=== PATIENT | female | born 1960 | race Caucasian/White ===

== ENCOUNTER → 2021-02-18 10:28 | Outpatient (BNVA) | payer OTHER, SELFPAY | PROVIDERS: Family Provider Family Medicine; PCP Family Medicine; Visit Provider Family Medicine | DX: E78.2 Mixed hyperlipidemia (principal); R30.0 Dysuria; G43.909 Migraine, unspecified, not intractable, without status migrainosus; N39.0 Urinary tract infection, site not specified; Z68.22 Body mass index [BMI] 22.0-22.9, adult | CPT/HCPCS: 80053; 80061; 81003; 84443; 85025; 87077; 87086; 87184 ==

== ENCOUNTER 2021-04-06 14:08 | Outpatient (CLI) | payer OTHER, SELFPAY ==
--- NOTE | 2021-04-06 14:30 | MM_ITS ---
WS: [id number] BILATERAL DIGITAL SCREENING MAMMOGRAPHY WITH CAD CLINICAL INFORMATION: Z12.31 - Encounter for screening mammogram for malignant neoplasm of breast HISTORY: Screening mammogram. No current complaints. COMPARISON: August 26, 2018 TECHNIQUE: Bilateral CC and MLO views. FINDINGS: The breasts are composed of heterogeneous fibroglandular density tissue, which can limit the detectio n of small underlying mass lesions. Small punctate calcifications. No suspicious mass, asymmetry, xiomara cifications, or architectural distortion. No evidence of malignancy. MM/[place] [id number] IMPRESSION: BI-RADS: 2-Benign FOLLOW UP: 1 Year Follow-up Recommend return to annual screening mammography.
== END 2021-04-06 14:09 | disposition home or self-care (01) ==
LOC: RADSHAW 14:11
PROVIDERS: Family Provider Family Medicine; PCP Family Medicine; Visit Provider Family Medicine
DX: Z12.31 Encounter for screening mammogram for malignant neoplasm of breast (principal)
CPT/HCPCS: 77067

== ENCOUNTER 2021-04-09 14:13 | Day surgery (SDC) | payer OTHER, SELFPAY ==
[2021-04-09] VITALS (11 sets, daily range): BP systolic 99–121; BP diastolic 63–80; PULSE 70–90; RESP 15–20; TEMP 36.3–36.6; O2SAT 97–100; BMI 22.3
--- NOTE | 2021-04-09 15:12 | CTR_ITS ---
PROCEDURE INFORMATION: Exam: CT Abdomen And Pelvis With Contrast Exam date and time: 04/09/2021 4:09 PM Age: 61 years old Clinical indication: Abdominal pain; Localized; Right lower quadrant (rlq); Prior surgery; Surgery date: 6+ months; Surgery type: Hyst; Patient HX: HX of miles syndrome C/O R flank/rlq abd pain; Additional info: Rlq tenderness. H/o utis as well TECHNIQUE: Imaging protocol: Computed tomography of the abdomen and pelvis with contrast. Radiation optimization: All CT scans at this facility use at least one of these dose optimization techniques: automated exposure control; mA and/or kV adjustment per patient size (includes targeted exams where dose is matched to clinical indication); or iterative reconstruction. Contrast material: OMNI 300; Contrast volume: 95 ml; Contrast route: INTRAVENOUS (IV); COMPARISON: No relevant prior studies available. RADIATION DOSE METRICS: Total DLP (mGy-cm): 955.89 FINDINGS: Liver: Normal. No mass. Gallbladder and bile ducts: Normal. No calcified stones. No ductal dilation. Pancreas: Normal. No ductal dilation. Spleen: Normal. No splenomegaly. Adrenal glands: Normal. No mass. Kidneys and ureters: Normal parenchyma. No hydronephrosis. Bilateral lower pole nonobstructing stones. Stomach and bowel: Unremarkable. No obstruction. No mucosal thickening. Large fecal volume. Appendix: No evidence of appendicitis. Intraperitoneal space: Unremarkable. No free air. No significant fluid collection. Vasculature: Unremarkable. No abdominal aortic aneurysm. Lymph nodes: Unremarkable. No enlarged lymph nodes. Urinary bladder: Unremarkable as visualized. Reproductive: Hysterectomy. Bones/joints: Unremarkable. No acute fracture. Soft tissues: Unremarkable. CT/CT abdomen pelvis w con* [id number] IMPRESSION: Negative for acute pathology in the abdomen or pelvis. Radiation Dose CTDIVOL = (mGy): DLP = 955.89 (mGy-cm)
--- NOTE | 2021-04-09 15:17 | W.ED.FEMALGU ---
HPI - Female Genitourinary General: Chief complaint: Abdominal Pain Stated complaint: abdomen pain Time Seen by Provider: 04/09/21 14:56 History of Present Illness: HPI Narrative: The patient is a 61-year-old female who comes to the ER complaining of right lower quadrant abdominal pain with radiation to the lower abdomen. She denies urinary symptoms. Earlier this year she did have a UTI treated and improved. Years ago she did have a hysterectomy for some type of cancer and she also has Gallegos syndrome. She gets regular colonoscopies and says she has had no polyps or any issues with that. Severity: moderate Female Urogenital Radiation: Suprapubic Quality of pain: cramping and sharp Consistency: constant Vaginal discharge: none Exacerbating factors: movement Associated symptoms: Reports no associated symptoms and abdominal pain; Deny headache(s) or nausea Review of Systems General: Reports: 10 or more systems reviewed and unremarkable except in HPI and below Const: Denies: fatigue Eyes: Denies: change in vision, blurry vision or eye redness ENMT: Denies: throat pain, swelling of lips/tongue, ear or mastoid pain or nasal congestion Card: Denies: chest pain, palpitations, irregular heart rhythm, edema, dyspnea on exertion or orthopnea Resp: Denies: dyspnea, productive cough or non-productive cough GI: Reports: abdominal pain; Denies: nausea, vomiting, diarrhea or constipation : Denies: flank pain, difficulty voiding, urinary frequency or urinary urgency Musc: Denies: neck pain, back pain, extremity pain, joint pain, joint redness, limited range of motion or muscle weakness Skin/Breast: Denies: rash, pruritus, erythema, skin pain or skin tenderness Neuro: Denies: headache(s), numbness in extremities, weakness in extremities, sensory changes, difficulty walking, dizziness, confusion or Slurred speech present Psych: Denies: anxiety or depression Endo: Denies: polyuria All/Imm: Denies: urticaria, throat swelling or tongue swelling PFSH ED PFSH: Medical History Hyperlipidemia Gallegos syndrome Melanoma (~2014) Uterine mass Benign Surgical History Hx of hysterectomy complete Status post colonoscopy Family History Sister Cancer uterine Diabetes Family/Other CAD (coronary artery disease) Denies family history of Clotting disorder Bleeding disorder Lung disease Stroke Social History Smoking and tobacco status: never smoked Second hand smoke exposure: No Alcohol intake: never Lives independently: Yes Household members: spouse Marital status: Current occupational status: retired History of recent travel: No Current gender identity: Female Special artie needs: No Agree to transfusion: Yes Physical Exam Const: COMMON NORMALS: no acute distress, average body habitus, patient oriented x3, no limitations, healthy appearing, alert and well nourished GENERAL APPEARANCE: cooperative, comfortable, well kempt and well developed ORIENTATION/CONSCIOUSNESS: Yes awake, Yes oriented to person, Yes oriented to place and Yes oriented to time HENMT: COMMON NORMALS: normocephalic, external ears normal and Normal external nose present HEAD & SCALP: normal to inspection and normocephalic NOSE: Normal external nose present EXTERNAL EAR: Yes external ears normal MOUTH: Normal oral and palatal mucosa present THROAT: posterior oropharynx normal Eye: COMMON NORMALS: Equal, round and reactive pupils present and EOMs intact bilaterally GENERAL EYE: appearance normal, both eyes and all related structures PUPIL: Yes Equal, round and reactive pupils present Neck/C-Spine: COMMON NORMALS: full ROM, no lymphadenopathy, no meningeal signs and no JVD GENERAL: Yes normal visual inspection Lymph: LYMPHATIC: no lymphadenopathy noted Chest: COMMONS NORMALS: normal inspection of the chest and normal palpation of entire chest wall Resp: COMMON NORMALS: normal respiratory effort, No retractions, No use of accessory muscles, clear to auscultation bilaterally and percussion normal EFFORT & INSPECTION: Yes able to speak in complete sentences AUSCULTATION: clear to auscultation bilaterally PERCUSSION: percussion normal Cardio: COMMON NORMALS: no JVD, regular rate, regular rhythm, S1 normal heart sound present, S2 normal heart sound present and Peripheral pulses 2+ throughout RATE: regular rate RHYTHM: regular rhythm HEART SOUNDS: S1 normal heart sound present and S2 normal heart sound present PERIPHERAL PULSES: Peripheral pulses 2+ throughout GI: COMMON NORMALS: Normal to inspection, nondistended, normoactive bowel sounds present, Soft to palpation and no masses INSPECTION: Yes normal to inspection PALPATION: Yes Soft to palpation OTHER: No flank tenderness. GI image (female): 1. Right lower quadrant abdominal tenderness. No rebound tenderness. : COMMON NORMALS: Yes no CVA tenderness BLADDER/KIDNEY EXAM: Yes no CVA tenderness Back/Pelvis: COMMON NORMALS: no CVA tenderness, thoracic and lumbar spine normal to inspection, no thoracic nor lumbar tenderness and thoraco-lumbar ROM normal Extremity: COMMON NORMALS: normal to inspection, full ROM, capillary refill normal, no joint enlargement and no pedal edema GENERAL: Yes normal exam except as noted Neuro: COMMON NORMALS: patient oriented x3, CN's II-XII intact bilaterally, moves all extremities, no focal motor deficits, no sensory deficits noted and gait normal SENSORIUM/ORIENTATION: Yes alert, Yes oriented to person, Yes oriented to place and Yes oriented to time MENINGEAL SIGNS: Yes no meningeal signs Psych: COMMON NORMALS: mental status grossly normal, Normal thought process present, cooperative, normal affect and speech normal APPEARANCE: Yes well kempt ATTITUDE: Yes calm SPEECH: Yes normal speech THOUGHT PROCESS: Normal thought process present Skin: COMMON NORMALS: no rashes or lesions noted GENERAL SKIN EXAM: no rashes or lesions noted Course Vital Signs: Vital signs: Vital Signs Temperature 97.7 F 04/09/21 14:48 Pulse Rate 90 04/09/21 18:31 Respiratory Rate 20 H 04/09/21 18:44 Blood Pressure 121/80 04/09/21 18:31 Pulse Oximetry 99 04/09/21 18:44 MDM - Female MDM Narrative: Medical decision making narrative: The patient had right lower quadrant pain. White count was 18. CT initially read no acute appendicitis. I called the [facility] physician back to have a second look as her white count is 18 and she is significantly tender there. He took a second look and did see acute appendicitis with an appendicolith. Discussed with Dr. Bower who will take the patient to surgery. Lab Data: Labs: Lab Results 04/09/21 04/09/21 04/09/21 Range/Units 15:35 16:15 16:15 WBC 18.1 H (4.0-10.0) 10^3/ uL RBC 4.45 (4.1-5.3) 10^6/u L Hgb 13.6 (11.5-15.3) g/dL Hct 43.0 (37.0-47.0) % MCV 96.6 (81-99) fL MCH 30.6 (28.0-34.0) pg MCHC 31.6 (30.0-36.0) g/dL RDW 12.4 (12.1-15.1) % Plt Count 221 (130-400) 10^3/c mm MPV 10.8 H (7.4-10.4) fL Neut % (Auto) 92.2 % Lymph % (Auto) 3.5 % [place] % (Auto) 3.5 % Eos % (Auto) 0.1 % Baso % (Auto) 0.3 % Neut # (Auto) 16.64 H (1.8-7.7) 10^3/u L Lymph # (Auto) 0.6 L (0.8-4.8) 10^3/u L [place] # (Auto) 0.6 (0.2-0.9) 10^3/u L Eos # (Auto) 0.0 (0.0-0.8) 10^3/u L Baso # (Auto) 0.1 (0.0-0.1) 10^3/u L Nucleated RBC % (a uto) 0 % Nucleated RBCs # 0.0 /100WBC Sodium 135 L (136-145) mmol/L Potassium 4.0 (3.5-5.1) mmol/L Chloride 102 (98-107) mmol/L Carbon Dioxide 21 L (22-29) mmol/L Anion Gap 16.0 (5-19) BUN 22 (8-23) mg/dL Creatinine 0.8 (0.5-0.9) mg/dL GFR Calculation 72.9 L (90-130) mL/min Glucose 121 H (65-115) mg/dL Calculated Osmolal ity 285 (285-295) mOsm/k g Lactic Acid (0.5-2.2) mmol/L Calcium 9.1 (8.5-10.5) mg/dL Total Bilirubin 0.3 (0.15-1.2) mg/dL AST 17 (0-32) U/L ALT 21 (0-33) U/L Alkaline Phosphata se 59 (35-105) IU/L Total Protein 6.9 (6.6-8.7) g/dL Albumin 4.3 (3.5-5.2) g/dL Globulin 2.6 (1.3-4.6) g/dL Lipase 39 (13-60) U/L Urine Color Yellow (Yellow) Urine Appearance Clear (CLEAR) Urine pH 5 (5-7) Ur Specific Gravit y 1.015 (1.005-1.030) Urine Protein Neg (Negative) Urine Glucose (UA) Norm (Normal) Urine Ketones Negative (Negative) Urine Blood Neg (Negative) Urine Nitrate Negative (Negative) Urine Bilirubin Neg (Negative) Urine Urobilinogen Norm (Negative) mg/dL Ur Leukocyte Madai ase Negative (Negative) 04/09/21 Range/Units 16:15 WBC (4.0-10.0) 10^3/ uL RBC (4.1-5.3) 10^6/u L Hgb (11.5-15.3) g/dL Hct (37.0-47.0) % MCV (81-99) fL MCH (28.0-34.0) pg MCHC (30.0-36.0) g/dL RDW (12.1-15.1) % Plt Count (130-400) 10^3/c mm MPV (7.4-10.4) fL Neut % (Auto) % Lymph % (Auto) % [place]edar % (Auto) % Eos % (Auto) % Baso % (Auto) % Neut # (Auto) (1.8-7.7) 10^3/u L Lymph # (Auto) (0.8-4.8) 10^3/u L [place]edar # (Auto) (0.2-0.9) 10^3/u L Eos # (Auto) (0.0-0.8) 10^3/u L Baso # (Auto) (0.0-0.1) 10^3/u L Nucleated RBC % (a uto) % Nucleated RBCs # /100WBC Sodium (136-145) mmol/L Potassium (3.5-5.1) mmol/L Chloride (98-107) mmol/L Carbon Dioxide (22-29) mmol/L Anion Gap (5-19) BUN (8-23) mg/dL Creatinine (0.5-0.9) mg/dL GFR Calculation (90-130) mL/min Glucose (65-115) mg/dL Calculated Osmolal ity (285-295) mOsm/k g Lactic Acid 1.4 (0.5-2.2) mmol/L Calcium (8.5-10.5) mg/dL Total Bilirubin (0.15-1.2) mg/dL AST (0-32) U/L ALT (0-33) U/L Alkaline Phosphata se (35-105) IU/L Total Protein (6.6-8.7) g/dL Albumin (3.5-5.2) g/dL Globulin (1.3-4.6) g/dL Lipase (13-60) U/L Urine Color (Yellow) Urine Appearance (CLEAR) Urine pH (5-7) Ur Specific Gravit y (1.005-1.030) Urine Protein (Negative) Urine Glucose (UA) (Normal) Urine Ketones (Negative) Urine Blood (Negative) Urine Nitrate (Negative) Urine Bilirubin (Negative) Urine Urobilinogen (Negative) mg/dL Ur Leukocyte Madai ase (Negative) Discharge Plan Discharge Patient Disposition: Placed in Observation Clinical Impression: Acute appendicitis Coding Level of Care Code ED 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
[2021-04-09] MEDS: ketorolac 30 mg/mL INJ 15 MG IVP (15:22)
[2021-04-09 15:42] LABS: Add Urine Microscopic? NO; Charge for UA Resulting for Rev
[2021-04-09 16:00] LABS: Bilirubin Urine Neg (Negative); Blood Urine Neg (Negative); Glucose Urine UA Norm (Normal); Ketones Urine Negative (Negative); Leukocyte Esterase Urine Negative (Negative); Nitrate Urine Negative (Negative); Protein Urine Neg (Negative); Specific Gravity, Urine 1.015 (1.005-1.030); Urine Appearance Clear (CLEAR); Urine Color Yellow (Yellow); Urobilinogen Urine Norm (Negative); pH Urine 5 (5-7)
[2021-04-09] MEDS: iohexol 300 mg/mL 100 mL Btl IV (16:21)
[2021-04-09 16:28] LABS: Basophils # 0.1 10^3/uL (0.0-0.1); Basophils % 0.3 %; Eosinophils % 0.1 %; Hemoglobin 13.6 g/dL (11.5-15.3); Lymphocytes # 0.6 10^3/uL (0.8-4.8); Lymphocytes % 3.5 %; Mean Corpuscular HGB Conc 31.6 g/dL (30.0-36.0); Mean Corpuscular Hemoglobin 30.6 pg (28.0-34.0); Mean Corpuscular Volume 96.6 fL (81-99); Mean Platelet Volume 10.8 fL (7.4-10.4); Monocytes # 0.6 10^3/uL (0.2-0.9); Monocytes % 3.5 %; Neutrophils # 16.64 10^3/uL (1.8-7.7); Neutrophils % 92.2 %; Nucleated Red Blood Cells % 0 %; Platelet Count 221 10^3/cmm (130-400); Red Blood Count 4.45 10^6/uL (4.1-5.3); Red Cell Distribution Width 12.4 % (12.1-15.1); White Blood Count 18.1 10^3/uL (4.0-10.0)
[2021-04-09 16:46] LABS: Alanine Aminotransferase 21 U/L (0-33); Albumin Level 4.3 g/dL (3.5-5.2); Alkaline Phosphatase 59 IU/L (35-105); Aspartate Amino Transferase 17 U/L (0-32); Blood Urea Nitrogen 22 mg/dL (8-23); Calcium 9.1 mg/dL (8.5-10.5); Carbon Dioxide 21 mmol/L (22-29); Chloride 102 mmol/L (98-107); Globulin 2.6 g/dL (1.3-4.6); Glomerular Filtration Rate 72.9 mL/min (90-130); Glucose 121 mg/dL (65-115); Lipase 39 U/L (13-60); Osmolality Calculated 285 mOsm/kg (285-295); Sodium 135 mmol/L (136-145); Total Bilirubin 0.3 mg/dL (0.15-1.2); Total Protein 6.9 g/dL (6.6-8.7)
[2021-04-09 16:47] LABS: Lactic Sepsis W/Reflex 1.4 mmol/L (0.5-2.2)
[2021-04-09] MEDS: fentaNYL 50 mcg/mL INJ 2mL IVP (18:44)
--- NOTE | 2021-04-09 18:48 | P.ANESASSM_ITS ---
Pre-Anesthetic Assessment Pre-Anesthetic Assessment: Height/Weight: Height 1.63 m Weight 58.967 kg Temp Pulse Resp BP Pulse Ox 97.7 F 90 18 121/80 97 04/09/21 14:48 04/09/21 18:31 04/09/21 18:31 04/09/21 18:31 04/09/21 18:31 Preop Diagnosis: acute appendicitis Proposed Procedure: Operation Date: 04/09/21 18:15 Proposed Procedures p Laparoscopic Appendectomy(Not Applicable) - Rodolfo Bower MD Familial anesthetic complications: none Was Beta Aguilar taken within 24 hours: N/A Was Clonidine taken within 24 hours: N/A Last intake: cranberry juce at 1400, smoothie at 0800 Social: Social History: No alcohol and No tobacco Exam: Pre-Anes Outpt Exam: alert, oriented x 3, clear to auscultation bilaterally and regular rate & rhythm Airway: Cervical ROM: WNL MP: 2 Dentition: Full GI: Comments: miles syndrome Metabolic: Metabolic: Hyperlipidemia Anesthetic Plan: ASA status: 2 Anesthesia: General Risk of > 500 ml blood loss (7ml/kg in children): No PFSH Anesthesia PFSH: Medical History (Updated 04/09/21 @ 18:49 by Rodolfo Bower MD) Hyperlipidemia Miles syndrome Melanoma (~2014) Uterine mass Benign Surgical History (Updated 04/09/21 @ 18:49 by Rodolfo Bower MD) Hx of hysterectomy complete Status post colonoscopy Family History Sister Cancer uterine Diabetes Family/Other CAD (coronary artery disease) Denies family history of Clotting disorder Bleeding disorder Lung disease Stroke Social History Smoking and tobacco status: never smoked Second hand smoke exposure: No Alcohol intake: never Lives independently: Yes Household members: spouse Marital status: Current occupational status: retired History of recent travel: No Current gender identity: Female Special artie needs: No Agree to transfusion: Yes Data Anesthesia CBC & Chem 7: 04/09/21 16:15 04/09/21 16:15 Other Labs: Laboratory Results - last 48 hr 04/09/21 04/09/21 04/09/21 15:35 16:15 16:15 WBC 18.1 H RBC 4.45 Hgb 13.6 Hct 43.0 MCV 96.6 MCH 30.6 MCHC 31.6 RDW 12.4 Plt Count 221 MPV 10.8 H Neut % (Auto) 92.2 Lymph % (Auto) 3.5 [place] % (Auto) 3.5 Eos % (Auto) 0.1 Baso % (Auto) 0.3 Neut # (Auto) 16.64 H Lymph # (Auto) 0.6 L [place] # (Auto) 0.6 Eos # (Auto) 0.0 Baso # (Auto) 0.1 Nucleated RBC % (auto) 0 Nucleated RBCs # 0.0 Sodium 135 L Potassium 4.0 Chloride 102 Carbon Dioxide 21 L Anion Gap 16.0 BUN 22 Creatinine 0.8 GFR Calculation 72.9 L Glucose 121 H Calculated Osmolality 285 Lactic Acid Calcium 9.1 Total Bilirubin 0.3 AST 17 ALT 21 Alkaline Phosphatase 59 Total Protein 6.9 Albumin 4.3 Globulin 2.6 Lipase 39 Urine Color Yellow Urine Appearance Clear Urine pH 5 Ur Specific Keyser 1.015 Urine Protein Neg Urine Glucose (UA) Norm Urine Ketones Negative Urine Blood Neg Urine Nitrate Negative Urine Bilirubin Neg Urine Urobilinogen Norm Ur Leukocyte Esterase Negative 04/09/21 16:15 WBC RBC Hgb Hct MCV MCH MCHC RDW Plt Count MPV Neut % (Auto) Lymph % (Auto) [place] % (Auto) Eos % (Auto) Baso % (Auto) Neut # (Auto) Lymph # (Auto) [place] # (Auto) Eos # (Auto) Baso # (Auto) Nucleated RBC % (auto) Nucleated RBCs # Sodium Potassium Chloride Carbon Dioxide Anion Gap BUN Creatinine GFR Calculation Glucose Calculated Osmolality Lactic Acid 1.4 Calcium Total Bilirubin AST ALT Alkaline Phosphatase Total Protein Albumin Globulin Lipase Urine Color Urine Appearance Urine pH Ur Specific Keys[place] Urine Protein Urine Glucose (UA) Urine Ketones Urine Blood Urine Nitrate Urine Bilirubin Urine Urobilinogen Ur Leukocyte Esterase Cardiac Studies: No Data to Display
--- NOTE | 2021-04-09 18:49 | P.HP_ITS ---
Providers/Chief Complaint Primary Care Provider: Alecia Lima MD Chief Complaint: abdomen pain History of Present Illness Esha Maynard is a 61 year old female who presented to the ER today with abdominal pain since this morning. Patient states the abdominal pain was generalized but is now more localized to the right lower quadrant. She had nausea but denies any vomiting. She is feeling cold but denies any fevers or chills. She has been feeling a bit constipated but denies any diarrhea. No bleeding per rectum. She is up-to-date on her colonoscopy Review of Systems General: Reports: 10 or more systems reviewed and unremarkable except in HPI and below Medications/Allergies Home Medications Medication Instructions Recorded Confirmed Last Taken Type rizatriptan 10 mg disintegrating See Rx Instructions PO .COMPLEX 02/18/21 04/09/21 Unknown Rx tablet #12 tab rosuvastatin 5 mg tablet 5 mg PO DAILY 02/18/21 04/09/21 04/09/21 History spironolactone 50 mg tablet 50 mg PO QAM 02/18/21 04/09/21 04/09/21 History topiramate 25 mg tablet 25 mg PO DAILY #30 tab 02/18/21 04/09/21 04/08/21 Rx jwpnzvc-tdykiqjiqbmuf-ibsnghoe 1 tab PO Q6H PRN 04/09/21 04/09/21 04/09/21 History [Excedrin Migraine] Allergies Allergy/AdvReac Type Severity Reaction Status Date / Time levofloxacin [From Levaquin] Allergy ALGY-Rash Verified 04/09/21 14:48 Penicillins Allergy ALGY-Rash Verified 04/09/21 14:48 Quinolones Allergy ALGY-Anaphy Verified 04/09/21 14:48 laxis Sulfa (Sulfonamide Allergy ALGY-Rash Verified 04/09/21 14:48 Antibiotics) PFSH Acute PFSH: Medical History Hyperlipidemia Gallegos syndrome Melanoma (~2014) Uterine mass Benign Surgical History Hx of hysterectomy complete Status post colonoscopy Family History Sister Cancer uterine Diabetes Family/Other CAD (coronary artery disease) Denies family history of Clotting disorder Bleeding disorder Lung disease Stroke Social History Smoking and tobacco status: never smoked Second hand smoke exposure: No Alcohol intake: never Lives independently: Yes Household members: spouse Marital status: Current occupational status: retired History of recent travel: No Current gender identity: Female Special artie needs: No Agree to transfusion: Yes Vitals/I&O/Wt Last Vital Signs Temp 97.7 F 04/09/21 14:48 Pulse 90 04/09/21 18:31 Resp 18 04/09/21 18:31 BP 121/80 04/09/21 18:31 Pulse Ox 97 04/09/21 18:31 Weight last 48 hrs Weight 130 lb Physical Exam Narrative: EXAM NARRATIVE: HEENT: Normocephalic Eye: Sclera /conjunctiva normal Respiratory and chest: Bilateral clear breath sounds on auscultation Cardiovascular: Normal S1 and S2 heart sounds Abdomen: Soft to palpation, tender right lower quadrant, voluntary guarding, no rigidity Neurological: Oriented to place person and time Skin: Intact, no lesions appreciated on gross exam Data : 04/09/21 16:15 04/09/21 16:15 A&P Assessment and plan (1) Acute appendicitis: 61-year-old female with right lower quadrant pain, nausea, with right lower quadrant tenderness. CT abdomen pelvis performed today which I reviewed showed acute appendicitis WBC 18 K Discussed the findings with the patient, plan for laparoscopic possible open appendectomy Procedure, risks, benefits and alternatives have been discussed with the patient who wishes to proceed with surgery. Status: Resolved Attestations Medical Necessity Statement*: Acute appendicitis requiring surgery today Coding Level of Care Code Acute Computer Designer for Rian Bernardo Diagnoses Acute appendicitis K35.80
[2021-04-09] MEDS: piperacillin-tazobactam 3.375 GM in sodium chloride 0.9% (plus) 50 ML IV (18:57)
--- NOTE | 2021-04-09 19:39 | P.OP_ITS ---
Operative Report Date of procedure: April 09, 2021 Pre-op Diagnosis: acute appendicitis Post-op diagnosis: same Procedure Done: Laparoscopic appendectomy Specimens removed/disposition: Appendix Surgeon: Rodolfo Bower Anesthesia: General Condition: stable Disposition: PACU Procedure: The patient was taken to the operating Room and intubated under general anesthesia after antibiotic had been administered. Using a 15 blade, a 1-cm infraumbilical incision was made and using open Sanjiv technique, the peritoneal cavity was entered. A 12mm port with balloon was placed and 15 mm of pneumoperitoneum was created and 10-mm 30 degree scope was introduced. Two separate 5mm ports were placed in the left lower quadrant and suprapubic area under direct visualization. The appendix was noted in the right lower quadrant and appeared acutely inflamed.. Using [place] forceps, an opening was made in the mesoappendix near the base of the appendix. An Endo NORM stapler 45mm long 3.5mm blue load was introduced to divide the appendix at it's base. Using александр ctrocautery, the mesoappendix including the appendicular artery was divided. There was no bleeding noted and the staple line appeared intact. EndoCatch bag was introduced to remove the appendix. All three ports were removed under direct visualization and there was no bleeding noted at the port sites. 10cc of 0.5% Marcaine was infiltrated at the port sites. The fascia at the umbilical port was closed using figure of eight 0-Vicryl sutures and subcutaneous tissue was approximated using 3-0 Vicryl and skin at all 3 port sites was closed using 4-0 Monocryl and Dermabond. The patient was extubated and transferred to recovery room in stable condition.
[2021-04-09] MEDS: HYDROcodone-acetaminophen 5-325 mg Tablet 2 TAB PO (20:03)
[2021-04-09] MEDS: ondansetron 4 MG Tablet PO (20:04)
--- NOTE | 2021-04-09 21:00 | ANE.PACU2 ---
Inpatient post-anesthesia follow up: Airway intact: Yes Vital signs: Temperature 97.6 F Pulse Rate [Monito r] 70 Pulse Rate 75 Respiratory Rate 16 Blood Pressure [Le ft Arm] 110/73 Blood Pressure 106/70 Pulse Oximetry 98 Oxygen Delivery Me thod Room Air Oxygen Flow Rate 6 Fraction of Inspir ed Oxygen Hydration adequate: Yes Nausea and vomiting: No Pain level: 3 Mental status: Baseline
== END 2021-04-10 11:52 | disposition home or self-care (01) ==
LOC: ER 14:56 → OR 18:05
PROVIDERS: Emergency Provider Family Medicine; PCP Family Medicine; Visit Provider Surgery
PROC: 0DTJ4ZZ Resection of Appendix, Percutaneous Endoscopic Approach (ICD-10-PCS; CPT 44970; principal; 2021-04-09 18:15)
DX: K35.80 Unspecified acute appendicitis (principal); E78.5 Hyperlipidemia, unspecified
CPT/HCPCS: 44970; 36415; 74177; 80053; 81003; 83605; 83690; 85025; 88304; J1100; J1885; J2250; J2405; J2543; J2704; J3010; J3490; Q0162; Q9967

== ENCOUNTER → 2021-05-05 09:35 | Outpatient (BNVA) | payer OTHER, SELFPAY | PROVIDERS: PCP Family Medicine; Visit Provider Family Medicine | DX: Z00.00 Encounter for general adult medical examination without abnormal findings (principal); G43.909 Migraine, unspecified, not intractable, without status migrainosus; E78.5 Hyperlipidemia, unspecified; Z79.899 Other long term (current) drug therapy | CPT/HCPCS: 80053; 80061; 83036; 84443; 85025 ==

== ENCOUNTER → 2021-05-18 15:57 | Outpatient (BNVA) | payer OTHER, SELFPAY | PROVIDERS: PCP Family Medicine; Visit Provider Family Medicine | DX: R79.89 Other specified abnormal findings of blood chemistry (principal) | CPT/HCPCS: 84439; 84443; 84481 ==

== ENCOUNTER → 2021-07-04 08:45 | Outpatient (BNVA) | payer OTHER, SELFPAY | PROVIDERS: PCP Family Medicine; Visit Provider Family Medicine | DX: E78.2 Mixed hyperlipidemia (principal) | CPT/HCPCS: 80061 ==

== ENCOUNTER → 2022-04-18 11:26 | Outpatient (BNVA) | payer SELFPAY | PROVIDERS: PCP Family Medicine; Visit Provider Dermatology | DX: Z01.89 Encounter for other specified special examinations (principal) ==

== ENCOUNTER 2022-10-11 06:01 | Day surgery (SDC) | payer OTHER, SELFPAY ==
[2022-10-09 10:05] VITALS: BMI 24.3
[2022-10-11 06:19] VITALS: BP 108/65; PULSE 68; RESP 18; TEMP 36.5; O2SAT 97
--- NOTE | 2022-10-11 06:19 | W.PM.OPSFHP ---
Same Day Surgery H&P Indication for Procedure/HPI DATE OF PROCEDURE: October 11, 2022 CHIEF COMPLAINT/INDICATIONFOR SURGICAL PROCEDURE: I am here for colonoscopy PREOP DIAGNOSIS: History of Gallegos syndrome PLANNED PROCEDURE: Operation Date: 10/11/22 07:15 Proposed Procedures p Colonoscopy 28192,Z12.11(Not Applicable) - Arturo Morgan MD 07/27/2022 This is a pleasant 62 years old female patient referred to my practice with history of Gallegos syndrome and she is due for a screening colonoscopy as last one was done 2017 and showed no evidence of polyps or other pathology.? She denies bleeding per rectum and she gives history of endometrial cancer. 10/11/2022 Patient comes today for screening colonoscopy ROS All systems have been reviewed negative except as for the above or per problem list. Medications/Allergies* Home Medications Medication Instructions Recorded Confirmed Type cgppvgv-merlkaamzbirg-zcyrymij 250 1 tab PO Q6H PRN Migraine Headache 04/09/21 10/11/22 History mg-250 mg-65 mg tablet (Excedrin Migraine) rosuvastatin 10 mg tablet 10 mg PO DAILY 10/09/22 10/09/22 History spironolactone 100 mg tablet 100 mg PO BID 10/09/22 10/09/22 History Allergies/Adverse Reactions Allergy/AdvReac Type Severity Reaction Status Date / Time erythromycin base Allergy ALGY-Rash Verified 10/11/22 06:20 [From Erythrocin] levofloxacin [From Levaquin] Allergy ALGY-Rash Verified 10/11/22 06:20 Penicillins Allergy ALGY-Rash Verified 10/11/22 06:20 Quinolones Allergy ALGY-Anaphy Verified 10/11/22 06:20 laxis Sulfa (Sulfonamide Allergy ALGY-Rash Verified 10/11/22 06:20 Antibiotics) Pertinent History/Comorbid Conditions* Medical History (Updated 07/18/22 @ 12:34 by Alecia Lima MD) Hyperlipidemia Gallegos syndrome Melanoma (~2014) Uterine mass Benign Surgical History (Updated 05/14/21 @ 15:11 by Rodolfo Bower MD) Hx of hysterectomy complete S/P laparoscopic appendectomy (04/09/21) Status post colonoscopy Family History (Updated 02/18/21 @ 09:40 by Arielle Woody LPN, RT) Diabetes Sister CAD (coronary artery disease) Family/Other Cancer Sister uterine Denies family history of Clotting disorder Bleeding disorder Lung disease Stroke Social History Smoking and tobacco status: never smoked Second hand smoke exposure: No Alcohol intake: never Lives independently: Yes Household members: spouse Marital status: Current occupational status: retired History of recent travel: No Current gender identity: Female Special artie needs: No Agree to transfusion: Yes Pertinent Exam Findings alert, oriented x 3, regular rate & rhythm and procedure specific exam findings (Abdominal exam nontender nondistended soft) Recommendations Surgery/Procedure today (Colonoscopy with possible biopsy) Coding Level of Care Code Acute 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
[2022-10-11] MEDS: sodium chloride 0.9% 1,000 ML 30 ML IV (06:25)
--- NOTE | 2022-10-11 06:58 | ANES.PREANE2 ---
Pre-Anesthetic Assessment Height/Weight: Height 1.63 m Weight 64.41 kg Temp Pulse Resp BP Pulse Ox O2 Del Method 97.7 F 68 18 108/65 97 10/11/22 06:19 10/11/22 06:19 10/11/22 06:19 10/11/22 06:19 10/11/22 06:19 10/11/22 06:19 Preop Diagnosis: History of Gallegos syndrome Operation Date: 10/11/22 07:15 Proposed Procedures p Colonoscopy 70310,Z12.11(Not Applicable) - Arturo Morgan MD Was Beta Aguilar taken within 24 hours: N/A Was Clonidine taken within 24 hours: N/A Last intake: Intake Last Liquid Date 10/10/22 Last Liquid Time 20:30 Last Solid Date 10/09/22 Last Solid Time 19:00 Last Intake: 20:30 Social No alcohol and No tobacco Exam alert, oriented x 3, clear to auscultation bilaterally and regular rate & rhythm Airway Submandibular: within normal limits Cervical ROM: within normal limits Mallampati: Class I Dentition: full Pulmonary None reported CV/HEM None reported None reported Hepatic None reported GI None reported Metabolic None reported Musc/skel None reported Neuropsych Headache (weekly) Anesthetic Plan ASA status: 2 Anesthesia: MAC Medications/Allergies Home Medications Medication Instructions Recorded Confirmed Last Taken Type fhetulh-hnfvsehijzpgs-gxigbxoj 250 1 tab PO Q6H PRN Migraine Headache 04/09/21 10/11/22 10/09/22 History mg-250 mg-65 mg tablet (Excedrin Migraine) furosemide 20 mg tablet (Lasix) 20 mg PO QAM #30 tabs 07/18/22 10/09/22 10/10/22 Rx potassium chloride 10 mEq 10 meq PO DAILY #30 caps 07/18/22 10/09/22 10/10/22 Rx capsule,extended release rizatriptan 10 mg disintegrating See Rx Instructions .Route 07/18/22 10/11/22 10/11/22 Rx tablet .COMPLEX #12 ea rosuvastatin 10 mg tablet 10 mg PO DAILY 10/09/22 10/09/22 10/10/22 History spironolactone 100 mg tablet 100 mg PO BID 10/09/22 10/09/22 10/10/22 History Allergies Allergy/AdvReac Type Severity Reaction Status Date / Time erythromycin base Allergy ALGY-Rash Verified 10/11/22 06:20 [From Erythrocin] levofloxacin [From Levaquin] Allergy ALGY-Rash Verified 10/11/22 06:20 Penicillins Allergy ALGY-Rash Verified 10/11/22 06:20 Quinolones Allergy ALGY-Anaphy Verified 10/11/22 06:20 laxis Sulfa (Sulfonamide Allergy ALGY-Rash Verified 10/11/22 06:20 Antibiotics) Current Medications Generic Name Dose Route Start Last Admin Trade Name Jabari PRN Reason Stop Dose Admin Sodium Chloride 1,000 mls @ 30 mls/hr 10/11/22 06:15 10/11/22 06:25 Sodium Chloride 0.9% IV 10/12/22 06:14 30 mls/hr .Q24H SYLVIE Administration PFSH Anesthesia Medical History Hyperlipidemia Gallegos syndrome Melanoma (~2014) Uterine mass Benign Surgical History Hx of hysterectomy complete S/P laparoscopic appendectomy (04/09/21) Status post colonoscopy Family History Sister Cancer uterine Diabetes Family/Other CAD (coronary artery disease) Denies family history of Clotting disorder Bleeding disorder Lung disease Stroke Social History Smoking and tobacco status: never smoked Second hand smoke exposure: No Alcohol intake: never Lives independently: Yes Household members: spouse Marital status: Current occupational status: retired History of recent travel: No Current gender identity: Female Special artie needs: No Agree to transfusion: Yes Data Anesthesia Cardiac Studies: No Data to Display
[2022-10-11 07:53] VITALS: BP 105/68; PULSE 76; RESP 16; TEMP 36.5; O2SAT 100
[2022-10-11 08:03] VITALS: BP 105/69; PULSE 70; RESP 16; O2SAT 100
[2022-10-11 08:15] VITALS: BP 102/72; PULSE 69; RESP 16; O2SAT 99
--- NOTE | 2022-10-11 11:58 | ANE.PACU2 ---
Inpatient post-anesthesia follow up: Airway intact: Yes Vital signs: Temperature 97.7 F Pulse Rate 69 Respiratory Rate 16 Blood Pressure 102/72 Pulse Oximetry 99 Oxygen Delivery Me thod Room Air Oxygen Flow Rate 3.5 Fraction of Inspir ed Oxygen Hydration adequate: Yes Nausea and vomiting: No Pain level: 1 Mental status: Baseline
== END 2022-10-11 08:25 | disposition home or self-care (01) ==
PROVIDERS: PCP Family Medicine; Visit Provider Surgery
PROC: 0DJD8ZZ Inspection of Lower Intestinal Tract, Via Natural or Artificial Opening Endoscopic (ICD-10-PCS; CPT 45378; principal; 2022-10-11 07:15)
DX: Z12.11 Encounter for screening for malignant neoplasm of colon (principal); D12.2 Benign neoplasm of ascending colon; E78.5 Hyperlipidemia, unspecified; Z79.82 Long term (current) use of aspirin
CPT/HCPCS: 45385; J2704; J7030

== ENCOUNTER → 2022-10-16 11:38 | Outpatient (BNVA) | payer OTHER, SELFPAY | PROVIDERS: PCP Family Medicine; Visit Provider Family Medicine | DX: E78.5 Hyperlipidemia, unspecified (principal) | CPT/HCPCS: 83036 ==

== ENCOUNTER → 2023-02-23 11:16 | Outpatient (BNVA) | payer OTHER, SELFPAY | PROVIDERS: PCP Family Medicine; Visit Provider Nurse Practitioner Family | DX: R50.9 Fever, unspecified (principal) | CPT/HCPCS: 87400; 87426 ==